=== PATIENT | female | born 1960 | race Caucasian/White ===

== ENCOUNTER → 2023-06-28 13:51 | Outpatient (REF) | payer MEDICARE, BC, SELFPAY ==
--- NOTE | 2023-06-09 09:51 | WATCHMAN ---
Documented by User: ERENDIRA Kaur 06/30/23 08:51
Watchman
Wathcman Procedure
Referred by:: Pawel Calle/Elvis Vargas
Date of Referral:: 06/01/23
[id number] Score
Age in Years (65=0, 65-74=1, >/=75=2): 65-74
Sex (Female=+1): Female
Congestive Heart Failure History (Yes=+1): No
Hypertension History (Yes=+1): Yes
Stroke/TIA/Thromboembolism History (Yes=+2): No
Vascular Disease History (Yes=+1): Yes
Diabetes Mellitus (Yes=+1): Yes
Score: 5
Anticoagulation Recommendations: Recommend anticoagulation (as validated in nonvalvular fib)
HASBLED Score
Hypertenstion (uncontrolled >160mmHG systolic): Yes
Renal disease (dialysis, transplant, Cr >2.26mg/dL or >200umol/L): No
Liver disease (cirrhosis or bilirubin >2x normal w/ AST/ALT/AP >3x normal: No
Stroke history: No
Prior major bleeding or predisposition to bleeding: Yes
Labile INR(unsable/high INRs,time in therapeutic range <60%): No
Age >65: No
Medication usage predisposing to bleeding(ASA, NSAIDS): No
Alcohol use (>/= 8 drinks/week): No
Score: 2
Risk: Anticoagulation can be considered, however patient does have moderate risk for major bleeding (2/100 patient-years)
Electrocardiogram
Interpretation: normal
Heart Rate: 63
Rate: normal
Rhythm: sinus
Physician Visits
Virtual Classroom Manager:: Alva
Date of Visit:: 06/01/23
Primary Service Delivery Management Consultant:: Elvis Vargas
Date of Visit:: 11/21/23
PCP:: Phu
Plan
Plan:: 06/01/2023: Consult received from Dr. Calle for watchman consult.
06/09/2023: BMP results reviewed. BUN/CREAT: 19/0.78. GFR 84. Assisted with scheduling CT Watchman for 06/28/2023 at 1400. Instructions reviewed for no eating or drinking for 3 hours prior and to bring a complete list of medications to visit. Allowed
for and answered questions.

Documented by User: ERENDIRA Bush 07/20/23 07:25
Watchman
[id number] Score
Score: 5
Anticoagulation Recommendations: Recommend anticoagulation (as validated in nonvalvular fib)
HASBLED Score
Score: 2
Risk: Anticoagulation can be considered, however patient does have moderate risk for major bleeding (2/100 patient-years)
Plan
Plan:: 06/01/2023: Consult received from Dr. Calle for watchman consult.
06/09/2023: BMP results reviewed. BUN/CREAT: 19/0.78. GFR 84. Assisted with scheduling CT Watchman for 06/28/2023 at 1400. Instructions reviewed for no eating or drinking for 3 hours prior and to bring a complete list of medications to visit. Allowed
for and answered questions.
07/20/2023: Reviewed patient with the heart team in the SDM meeting. The team is agreeable to proceed with Watchman. T/c 27mm device will confirm with intraop imaging.
--- NOTE | 2023-07-12 08:29 | OID.L.PAT ---
Pulmonary Nodule Pat Letter
- -
07/12/23
JUDY JACKSON
[address]
[place], [place] [address]
Dear JUDY,
A pulmonary nodule was seen on an imaging study done by Radiology. This was reviewed by the Pulmonary Nodule Advisory Board and the following recommendation was made:
Recommendation: Follow up Chest CT in 6 months
If you have any questions, please do not hesitate to contact your primary care physician. If you are in need of a Physician, you can go to [email or web address] and click on 'Find a Provider'. Type 'Family Medicine' in the search.
Oncology Nurse Navigator
[phone]
--- NOTE | 2023-07-12 08:29 | OID.L.REC ---
Pulmonary Nodule Follow Up
- Recommendation
07/12/23
Pulmonary Nodule Review Recommendations
Your patient, JUDY JACKSON, had a pulmonary nodule seen on a CT Chest done on 06/28/23 in the [facility] Radiology Department.
This was reviewed by the [facility] Pulmonary Nodule Advisory Board and the following recommendation was made:
Recommendation: Follow up Chest CT in 6 months
If you have any questions please do not hesitate to contact us.
Sincerely,
Oncology Nurse Navigator
[facility]
[phone]
== END ==
LOC: RAD 13:51
PROVIDERS: ATTENDING PHYSICIAN Internal Medicine Cardiovascular Disease; FAMILY PHYSICIAN Family Medicine
DX: I48.0 Paroxysmal atrial fibrillation (principal)
CPT/HCPCS: 75572; Q9967

== ENCOUNTER 2023-09-21 06:01 | Inpatient (IN) | payer MEDICARE, BC, SELFPAY ==
[2023-09-09 10:46] VITALS: BMI 28.0
[2023-09-09 11:59] LABS: INR 1.93; PT 22.3 Sec (11.4-14.6)
[2023-09-09 12:08] LABS: % Basophils 1.2 % (0-2); % Eosinophils 1.8 % (0-6); % Immature Granulocytes 0.3 % (0-0.5); % Lymphocytes 21.6 % (20.5-51.1); % Monocytes 6.5 % (1.7-9.3); % Neutrophils 68.6 % (42.2-75.2); Absolute Basophils 0.1 10^3/uL (0-0.2); Absolute Eosinophils 0.2 10^3/uL (0-0.7); Absolute Lymphocytes 1.9 10^3/uL (1.2-3.4); Absolute Monocytes 0.6 10^3/uL (0.1-0.6); Absolute Neutrophils 6.1 10^3/uL (1.4-6.5); Hematocrit 32.7 % (37.0-47.0); Hemoglobin 10.5 g/dL (12.0-16.0); Mean Corp Hgb Conc. 32.1 g/dL (33.0-37.0); Mean Corpuscular Hgb 26.3 pg (27.0-31.0); Mean Corpuscular Volume 81.8 fL (81.0-99.0); Nucleated Red Blood Cells % 0 %; Platelet Count 247 10^3/uL (130-400); Red Cell Dist. Width 15.5 % (11.5-14.5); White Blood Cell Count 8.9 10^3/uL (4.8-10.8)
[2023-09-09 12:22] LABS: ALT (SGPT) 17 U/L (0-35); AST (SGOT) 25 U/L (14-36); Albumin 4.6 g/dl (3.5-5.0); Alkaline Phosphatase 57 U/L (38-126); Blood Urea Nitrogen 18 mg/dl (7-17); Calcium 9.2 mg/dl (8.4-10.2); Carbon Dioxide 24 mmol/L (22-30); Chloride 100 mmol/L (98-107); Estimated Creatinine Clearance 76 ml/min; Glucose 129 mg/dl (70-99); Potassium 4.3 mmol/L (3.5-5.1); Sodium 138 mmol/L (135-145); Total Bilirubin 0.4 mg/dl (0.2-1.3); eGFR > 60.00
[2023-09-21] VITALS (17 sets, daily range): BP systolic 101–141; BP diastolic 43–61; BMI 28.0
[2023-09-21 06:56] LABS: Glucose - Point of Care 135 mg/dl (70-99)
[2023-09-21 08:28] LABS: ACT-LR - POC 216 Seconds (116-155)
--- NOTE | 2023-09-21 09:20 | WATCHMAN.MD ---
Addendum entered and electronically signed by Pawel Calle MD 09/22/23 09:43:
She is reluctant to reinitiate aspirin as she has had bleeding complications in the past with aspirin.
-Our revised plan is for maintaining direct oral anticoagulation for 6 months if she tolerates without recurrent bleeding. Thereafter plan to stop direct oral anticoagulant and rediscussed with her starting aspirin and low-dose at 81 mg daily which
I think she would tolerate without recurrent major bleeding.
-We will check 3-month transesophageal echocardiogram to assess for any device related thrombus and to assess for any leaks.
Original Note:
Watchman Implant
-
WATCHMAN LEFT ATRIAL APPENDAGE CLOSURE DEVICE REPORT
Date: September 21, 2023
Referring Web Marketing Analyst: Dr. Pawel Bay
Primary Care Provider: Dr Elvis Vargas
History:
Referred from Dr. Vargas for consideration of left atrial appendage exclusion owing to need for anticoagulation to reduce atrial fibrillation related thromboembolic risk but clinical course has also been complicated by recurrent GI bleeding.
Watchman Team:
MENDY: Dr Brenda Herrera M.D.
Transseptal block making machine operator: Dr Yazan López M.D.
Implanter: Dr Pawel Calle M.D.
Procedure: Watchman left atrial appendage closure.
The patient was placed under general anesthesia by anesthesia.
A MENDY probe was placed.
A 10 Fr sheath was placed in the right femoral vein for ICE.
A 16 Fr sheath was placed via the right femoral vein to allow access for the watchman sheath
Heparin was administered to goal ACT 350-400 seconds. Fluid bolus was given.
Intracardiac ultrasound catheter was placed in the right atrium identifying the intraatrial septum for transseptal puncture.
Transseptal puncture was performed By Dr López. This entailed advancing a sheath with dilator into the superior vena cava and withdrawing both (monitoring intracardiac ultrasound, fluoroscopy and tip pressure) with the tip oriented toward the
atrial septum. The fossa ovalis was engaged (indicated by sudden displacement of the sheath tip as well as tenting of the fossa seen on intracardiac ultrasound). AcQCross transseptal system was used. Left atrial catheter position was confirmed by
echocardiographic imaging, pressure monitoring and well as fluoroscopy. The sheath was advanced over the dilator and positioned in the left atrium.
Dr Pawel Calle positioned and deployed the Watchman device.
The 14 Slovenian watchman access system sheath double curve was substituted for the transeptal sheath. A 5 Slovenian curved pigtail was then substituted for the guidewire through the watchman sheath to the ostium of the left atrial appendage. The 5
Slovenian pigtail was advanced into the left atrial appendage and angiography was performed. This allowed additional measurements assessing left atrial appendage ostium size and BERTHA morphology.
The pigtail catheter was removed from the access sheath. A 24 mm Watchman device was flushed and then placed into the watchman access sheath and advanced through the sheath. The Watchman was clamped into the sheath. The device was deployed into
the left atrial appendage.
The PASS criteria were met. The stability tug test was performed and passed. Angiography and transesophageal echocardiogram revealed no leaks nor jets. The position was confirmed on angiography and transesophageal echo and there were no
significant shoulders. Compression ranges from 20 % to 24 %.
After meeting the PASS release criteria the device was released into the left atrial appendage.
The watchman access sheath was then removed through the transseptal into the IVC.
Impression:
Transeptal puncture by Dr López.
SUCCESSFUL DEPLOYMENT OF 24 mm WATCHMAN LEFT ATRIAL APPENDAGE CLOSURE DEVICE by Dr Pawel Calle.
Recommended anticoagulation strategy for this specific patient is:
In her particular case we discussed maintaining full dose oral anticoagulation (DOAC) with adding aspirin until the follow-up MENDY (3 mo post implant) and if that looks okay stopping aspirin but maintaining full dose anticoagulation to complete 6
months if she has no major bleeding complications. If she were to have recurrent bleeding we could change to lower-dose DOAC (rivaroxaban 15 mg)to complete 6 mo.
Transesophageal echocardiogram at 3 months post procedure will be used to assess for any device related thrombus, assess for any leaks, and aid in the decision making regarding altering anticoagulation/antiplatelet recommendations.
At post procedure MENDY leaks > 5mm are significant and require chronic full anticoagulation or consideration for leak closure. [place]-device leaks between 3 and 5 mm may also carry an increased risk. These patients will need individualized risk
assessment and discussion with Watchman team. Leaks < 3 mm are generally considered non-significant.
Continue cardiovascular care with Dr. Vargas after her follow-up MENDY.
cc:
Dr. Pawel Bay
Dr Elvis Vargas
[2023-09-21] MEDS: ANESTHETIC LOZENGE 1 LOZENGE PO (10:32)
[2023-09-21] MEDS: XARELTO 20 MG PO (16:06)
--- NOTE | 2023-09-21 16:59 | CM ---
spoke to pt in room, she is prev indep, lives with her husb in a split level home with no steps to enter. she has a CPAP she uses. she denies any dc planning needs. plan is for dc to home when medically stable.
--- NOTE | 2023-09-21 18:04 | PTCARENOTE ---
Pt received post watchman and admitted to room 2241. Pt awake, alert and oriented. Right groin site dressing dry and intact. Pt OOB to the bathroom and chair at 1330. Pt denies any pain or discomfort.
[2023-09-21] MEDS: COREG 12.5 MG PO (20:08)
[2023-09-21] MEDS: PEPCID 20 MG PO (21:59)
[2023-09-21] MEDS: NORVASC 10 MG PO (21:59)
[2023-09-21] MEDS: LIPITOR 20 MG PO (21:59)
[2023-09-21] MEDS: COLACE 100 MG PO (21:59)
--- NOTE | 2023-09-21 22:21 | PTCARENOTE ---
R groin dsg w/ small amt drainage on dsg. Unchanged from dayshift. Offers no c/o at this time. Ambulating around room w/ steady gait. Assessment noted as documented. VSS. Tele- SR/SB. HR 50-60s. Currently in bed; call wiley w/in reach.
[2023-09-22 02:27] VITALS: BP 121/57
[2023-09-22 02:54] LABS: Hematocrit 30.3 % (37.0-47.0); Hemoglobin 9.9 g/dL (12.0-16.0); Mean Corp Hgb Conc. 32.7 g/dL (33.0-37.0); Mean Corpuscular Hgb 26.5 pg (27.0-31.0); Mean Platelet Volume 10.6 fL (7.4-10.4); Platelet Count 237 10^3/uL (130-400); Red Blood Cell Count 3.74 10^6/uL (4.20-5.40); Red Cell Dist. Width 15.7 % (11.5-14.5); White Blood Cell Count 9.4 10^3/uL (4.8-10.8)
[2023-09-22 03:15] LABS: Blood Urea Nitrogen 19 mg/dl (7-17); Calcium 8.7 mg/dl (8.4-10.2); Carbon Dioxide 26 mmol/L (22-30); Chloride 106 mmol/L (98-107); Estimated Creatinine Clearance 76 ml/min; Glucose 98 mg/dl (70-99); Magnesium 2.2 mg/dl (1.6-2.3); Sodium 141 mmol/L (135-145); eGFR > 60.00
[2023-09-22 06:51] VITALS: BP 112/60
[2023-09-22] MEDS: SINGULAIR 10 MG PO (08:18)
[2023-09-22] MEDS: COREG 12.5 MG PO (08:18)
[2023-09-22] MEDS: PROTONIX 40 MG PO (08:18)
--- NOTE | 2023-09-22 08:44 | PTCARENOTE ---
Rec'd pt this shift awake and alert ambulating in room and in hallway. Pt SB on monitor, RA. Lungs clear. AM meds given. Pt denies pain, denies sob. Rt groin dsg intact, no bleeding, no hematoma. See worklist for VS/I and O and assessments.
--- NOTE | 2023-09-22 09:25 | W.PN.CARDCBS ---
Addendum entered and electronically signed by Pawel Calle MD 09/22/23 09:43:
Patient seen, interviewed and examined by me.
Well-appearing, no acute distress
Regular rate and rhythm with normal S1 and S2, no S3 no S4. There is a grade 1/6 apical holosystolic murmur and no rubs. PMI is normally placed.
Lungs are clear to auscultation bilaterally without wheezes rales or rhonchi.
Abdomen soft nontender nondistended with normoactive bowel sounds
Extremities show trace pretibial edema bilaterally no clubbing or cyanosis.
Neurologic exam is grossly nonfocal.
Agree with advanced practice professionals assessment and plan as noted below.
Doing well, stable after implantation of Watchman left atrial appendage occlusion device.
She is reluctant to reinitiate aspirin as she has had bleeding complications in the past with aspirin.
-Our revised plan is for maintaining direct oral anticoagulation for 6 months if she tolerates without recurrent bleeding. Thereafter plan to stop direct oral anticoagulant and rediscussed with her starting aspirin and low-dose at 81 mg daily which
I think she would tolerate without recurrent major bleeding.
-We will check 3-month transesophageal echocardiogram to assess for any device related thrombus and to assess for any leaks.
Original Note:
Today's Communication / Plan
-
stable for d/c home
Impression / Plan
-
Referring Medical Officer Psychiatry: Dr. Pawel Bay
Primary Care Provider: Dr Elvis Vargas
Impression:
Recurrent GI bleed/ulcers
PAF
HTN
HLD
CAD/CABG x 3 2016
ELDON post L CEA 2017, R CEA 2018
LAYO/CPAP
GERD/HH
Psoriatic arthritis
Chronic anemia
Ischemic Cardiomyopathy
Plan:
post 24mm BERTHA Watchman device implant 09/21/23
groin stable
tele SB
continue OAC Xarelto 20mg
In her particular case we discussed maintaining full dose oral anticoagulation (DOAC) with adding aspirin until the follow-up MENDY (3 mo post implant) and if that looks okay stopping aspirin but maintaining full dose anticoagulation to complete 6
months if she has no major bleeding complications. If she were to have recurrent bleeding we could change to lower-dose DOAC (rivaroxaban 15 mg)to complete 6 mo.
f/u MENDY 12/06
Activity restrictions reviewed
stable for d/c home
Progress Note - Medical Officer Psychiatry
Subjective
Date of Service: September 22, 2023
no cp, sob
Objective
Labs:
09/22/23 02:37
09/22/23 02:37
Labs
Hgb 9.9 g/dL (12.0-16.0) L 09/22/23 02:37
Hct 30.3 % (37.0-47.0) L 09/22/23 02:37
Plt Count 237 10^3/uL (130-400) 09/22/23 02:37
PT 22.3 Sec (11.4-14.6) H 09/09/23 11:15
INR 1.93 09/09/23 11:15
Sodium 141 mmol/L (135-145) 09/22/23 02:37
Potassium 4.0 mmol/L (3.5-5.1) 09/22/23 02:37
BUN 19 mg/dl (7-17) H 09/22/23 02:37
Creatinine 0.7 mg/dL (0.6-1.0) 09/22/23 02:37
Glucose 98 mg/dl (70-99) 09/22/23 02:37
Vital Signs and I&O:
Vital Signs
Temp Pulse Resp BP Pulse Ox
98.6 F 70 20 112/60 98
09/22/23 06:49 09/22/23 08:18 09/22/23 06:49 09/22/23 08:18 09/22/23 08:42
Vital Signs
Temp Pulse Resp BP Pulse Ox
98.6 F 70 20 112/60 98
09/22/23 06:49 09/22/23 08:18 09/22/23 06:49 09/22/23 08:18 09/22/23 08:42
Intake & Output
09/20/23 09/21/23 09/22/23 09/23/23
06:59 06:59 06:59 06:59
Intake Total 1140 / 1140
Output Total 825 / 825
Balance 315 / 315
Physical Exam
Physical Exam
NAD< AOX3
S1, S2, RRR
CTAB, non labored
SNTND bsx4
R fem site c/d/i no HT, soft
[2023-09-22 11:12] VITALS: BP 119/55
[2023-09-22 11:13] VITALS: BP 119/55
--- NOTE | 2023-09-22 11:19 | PTCARENOTE ---
INT d/c'd. monitor d/c'd. Discharge instructions given to patient.
--- NOTE | 2023-09-22 12:29 | W.DS.TRANS ---
DC Summary - Corn Shucker
-
Discharge Instructions:
Discharge Diagnosis/Procedures AFib, s/p Watchman device implant
Diet Low Cholesterol
Driving Restrictions No driving for 24 hours
Others Tests Follow up MENDY has been scheduled for you at
[facility] on 12/07/2023. You will
receive a call from Dr. Vargas's office with date
for pre-admission testing and instructions.
Instructions:
Stand-Alone Forms: DC Instructions- Cath/EP Lab
Changes to Home Medications: No
Discharge Medications:
DC Medications w/original date entered in [facility]
amlodipine 5 mg tablet 10 mg PO HS Blood Pressure 06/08/21
atorvastatin 10 mg tablet 20 mg PO HS High Cholesterol 11/04/22
carvedilol 12.5 mg tablet 12.5 mg PO BID Blood Pressure 11/04/22
montelukast 10 mg tablet 10 mg PO DAILY Allergies 11/04/22
multivitamin with folic acid 400 mcg tablet (Tab-A-Scar) 1 tab PO DAILY Supplement 01/26/23
rivaroxaban 20 mg tablet (Xarelto) 20 mg PO HS Blood Clot Prevention/Tx 01/26/23
tirzepatide 12.5 mg/0.5 mL subcutaneous pen injector (Mounjaro) 10 mg SC FR diabetes 01/26/23
pantoprazole 40 mg tablet,delayed release 40 mg PO DAILY Gastrointestinal issue #30 tabs 01/28/23
ascorbic acid (vitamin C) 1,000 mg tablet,extended release (Vitamin C ER) 1,000 mg PO DAILY Supplement 09/03/23
cholecalciferol (vitamin D3) 50 mcg (2,000 unit) capsule (Vitamin D3) 50 mcg PO DAILY Supplement 09/03/23
docusate sodium 100 mg capsule (Colace) 100 mg PO HS Constipation 09/03/23
famotidine 20 mg tablet 20 mg PO HS Gastrointestinal Issue 09/03/23
iron polysaccharide complex-iron heme polypeptide 28 mg tablet (Feosol Bifera) 1 tab PO DAILY Supplement 09/03/23
mecobalamin (vitamin B12) 2,500 mcg chewable tablet 2,500 mcg PO DAILY Supplement 09/03/23
magnesium citrate 100 mg tablet 200 mg PO DAILYPRN PRN constipation 09/09/23
Home Medication Changes
Pending Results: No
== END 2023-09-22 11:26 | disposition home or self-care (01) | DRG 274 ==
LOC: IVU 06:01
PROVIDERS: Internal Medicine Cardiovascular Disease; Nurse Practitioner; ADMITTING PHYSICIAN Internal Medicine Cardiovascular Disease; FAMILY PHYSICIAN Family Medicine
PROC: 02L73DK Occlusion of Left Atrial Appendage with Intraluminal Device, Percutaneous Approach (ICD-10-PCS; 2023-09-21)
PROC: B24BZZ4 Ultrasonography of Heart with Aorta, Transesophageal (ICD-10-PCS; 2023-09-21)
DX: I48.0 Paroxysmal atrial fibrillation (principal); Z00.6 Encounter for examination for normal comparison and control in clinical research program; D64.9 Anemia, unspecified; I10 Essential (primary) hypertension; E78.5 Hyperlipidemia, unspecified; I25.10 Atherosclerotic heart disease of native coronary artery without angina pectoris; I65.23 Occlusion and stenosis of bilateral carotid arteries; I25.5 Ischemic cardiomyopathy; I08.1 Rheumatic disorders of both mitral and tricuspid valves; J45.909 Unspecified asthma, uncomplicated; G47.33 Obstructive sleep apnea (adult) (pediatric); E11.9 Type 2 diabetes mellitus without complications; K21.9 Gastro-esophageal reflux disease without esophagitis; K44.9 Diaphragmatic hernia without obstruction or gangrene; K76.0 Fatty (change of) liver, not elsewhere classified; K59.09 Other constipation; L40.50 Arthropathic psoriasis, unspecified; Z79.01 Long term (current) use of anticoagulants; Z79.899 Other long term (current) drug therapy; Z87.11 Personal history of peptic ulcer disease; Z87.891 Personal history of nicotine dependence; Z88.8 Allergy status to other drugs, medicaments and biological substances; Z95.1 Presence of aortocoronary bypass graft
CPT/HCPCS: 33340; 36415; 80048; 80053; 82962; 83735; 85025; 85027; 85347; 85610; 86850; 86900; 86901; 87070; 93005; 93355; C1759; C1760; C1769; C1892; C1894; Q9967

== ENCOUNTER → 2023-11-23 10:48 | Outpatient (REF) | payer MEDICARE, BC, SELFPAY | LOC: SDSPAT 10:48 | PROVIDERS: ATTENDING PHYSICIAN Internal Medicine Cardiovascular Disease; FAMILY PHYSICIAN Family Medicine; OTHER PHYSICIAN Nuclear Medicine Nuclear Cardiology | DX: Z01.818 Encounter for other preprocedural examination (principal); I48.0 Paroxysmal atrial fibrillation | CPT/HCPCS: 93005 ==

== ENCOUNTER 2023-11-26 22:10 | Emergency (ER) | payer MEDICARE, BC, SELFPAY ==
[2023-11-26 22:13] VITALS: BP 157/71
[2023-11-26 22:21] LABS: % Basophils 0.7 % (0-2); % Eosinophils 2.1 % (0-6); % Immature Granulocytes 0.4 % (0-0.5); % Lymphocytes 26.9 % (20.5-51.1); % Monocytes 7.1 % (1.7-9.3); % Neutrophils 62.8 % (42.2-75.2); Absolute Basophils 0.1 10^3/uL (0-0.2); Absolute Eosinophils 0.2 10^3/uL (0-0.7); Absolute Lymphocytes 2.9 10^3/uL (1.2-3.4); Absolute Monocytes 0.8 10^3/uL (0.1-0.6); Absolute Neutrophils 6.8 10^3/uL (1.4-6.5); Hematocrit 32.6 % (37.0-47.0); Hemoglobin 10.9 g/dL (12.0-16.0); Mean Corp Hgb Conc. 33.4 g/dL (33.0-37.0); Mean Corpuscular Hgb 26.3 pg (27.0-31.0); Mean Corpuscular Volume 78.6 fL (81.0-99.0); Mean Platelet Volume 10.5 fL (7.4-10.4); Nucleated Red Blood Cells % 0 %; Platelet Count 294 10^3/uL (130-400); Red Blood Cell Count 4.15 10^6/uL (4.20-5.40); Red Cell Dist. Width 15.9 % (11.5-14.5); White Blood Cell Count 10.8 10^3/uL (4.8-10.8)
[2023-11-26 22:42] LABS: ALT (SGPT) 14 U/L (0-35); AST (SGOT) 23 U/L (14-36); Albumin 4.6 g/dl (3.5-5.0); Alkaline Phosphatase 61 U/L (38-126); Blood Urea Nitrogen 38 mg/dl (7-17); Calcium 9.3 mg/dl (8.4-10.2); Carbon Dioxide 26 mmol/L (22-30); Chloride 102 mmol/L (98-107); Glucose 169 mg/dl (70-99); Potassium 4.4 mmol/L (3.5-5.1); Sodium 139 mmol/L (135-145); Total Bilirubin 0.5 mg/dl (0.2-1.3); Total Protein 8.1 g/dl (6.3-8.2); eGFR > 60.00
--- NOTE | 2023-11-26 23:32 | ED.GENMED ---
History of Present Illness
General
Chief Complaint: Cardiac Symptoms
Source: patient
Exam Limitations: none
Time Seen by Provider: 11/26/23 23:17
History of Present Illness
History of Present Illness:
This is a 63 year old female that comes in by ambulance with c/o atrial fib. States that she has not had any issues with atrial fib for years. States that she only had it months after her bypass surgery and it went away. States that today she felt
like her heart was going into atrial fib as she would feel it beat irregular and then had a pause. States that she did walk today. States that she put her Apple watch on and her heart rate would go up to 160's. States that when the ambulance got
there they said she was in atrial fib. Then in the ambulance she felt a little lightheaded and they asked how she felt. States that she told them about the lightheaded feeling and they said her heart rate went down into the 30's and she then was in
NSR. Patient states that she had a little nausea and slight headache and lightheadedness. States that her left up she thought may have hurt a little but she may have imagined this. Denies any fever, chills, chest pain, SOB, abd pain, vomiting,
diarrhea, urinary burning.
Past History
Past History
ED Past Medical History: Arrthythmia (Atrial fib, V-Tach), Asthma, CAD, CVA, HTN, Hypercholesterolemia, NIDDM, SC and Other (Bronchitis, Pyelonephritis, psoriatic arthritis, Sleep apnea uses CPAP, GI bleeding, Anemia, )
ED Past Surgical History: Cardiac (CABG, Left and right Carotid endarterectomy, Watchman procedure Nay 2023) and Other
Social History
Tobacco: Former smoker
Alcohol: Occasional
Drug: None
Personal:
Living: with family
Employment: Employed
Family History
Family History: Hypertension
Review of Systems
Review of Systems
All Other Systems: ROS reviewed and negative except as documented in HPI and ROS
Constitutional: Reports no symptoms; Denies fever or chills
EENT: Reports no symptoms
Respiratory: Reports no symptoms; Denies cough or trouble breathing
Cardiac: Denies chest pain
ABD/GI: Reports nausea; Denies abdominal pain, vomiting or diarrhea
: Reports no symptoms; Denies dysuria, frequency or urgency
Musculoskeletal: Reports no symptoms
Skin: Reports no symptoms
Neurological: Reports headache and other (Lightheaded)
Psychiatric: Reports no symptoms
Phy Exam
General Physical Exam
General Presentation: well appearing and no apparent distress
General age: appears stated age
General Skin: warm and dry
General Habitus: normal
General Mental: alert
General Hydration: dry mucous membranes
ENT Exam
ENT Exam: TM's normal, pharynx normal and neck supple
Eye Exam
Eye Exam: EOMI
Cardiovascular Exam
Cardiovascular Exam: regular rate/rhythm, no edema, no murmur and normal peripheral pulses
Pulmonary Exam
Pulmonary Exam: lungs clear, no respiratory distress, no rales, chest non tender, no crackles, no rhonchi, no wheezing and no cough
Gastrointestinal Exam
Gastrointestinal Exam: normal bowel sounds, non tender, soft, no organomegaly, no pulsatile mass and non distended
Musculoskeletal Exam
Musculoskeletal Exam: full ROM and no edema
Skin Exam
Skin Exam: normal color, warm/dry, no rash and no petechia
Psychiatric Exam
Psychiatric Exam: normal mood/affect
Course
Orders/Labs/Results
Orders:
Orders
11/26/23 22:13
Electrocardiogram (*1) Urgent
Reason for Study: Chest Pain
EKG- Treatment ONCE
11/26/23 22:16
Complete Blood Count/With Diff Urgent
Comprehensive Metabolic Panel Urgent
11/26/23 23:32
0.9% Sodium Chloride 1000 ml [Nss] 1,000 ml IV BOLUS
11/26/23 23:37
Troponin I Urgent
Abnormal Lab Results
11/26/23
22:16
RBC 4.15 L 10^6/uL
(4.20-5.40)
Hgb 10.9 L g/dL
(12.0-16.0)
Hct 32.6 L %
(37.0-47.0)
MCV 78.6 L fL
(81.0-99.0)
MCH 26.3 L pg
(27.0-31.0)
RDW 15.9 H %
(11.5-14.5)
MPV 10.5 H fL
(7.4-10.4)
Absolute Neuts (auto) 6.8 H 10^3/uL
(1.4-6.5)
Absolute Monos (auto) 0.8 H 10^3/uL
(0.1-0.6)
BUN 38 H mg/dl
(7-17)
Glucose 169 H mg/dl
(70-99)
11/26/23 22:16
11/26/23 22:16
H/H low but improved from prior labs, Anemia,Dehydration. Glucose nonfasting. Troponin <0.012
Vital Signs
Initial and Last Documented VS:
Initial Vital Signs
Temp Pulse Resp BP Pulse Ox
97.9 F 77 18 157/71 98
11/26/23 22:13 11/26/23 22:13 11/26/23 22:13 11/26/23 22:13 11/26/23 22:13
Last Documented Vital Signs
Temp Pulse Resp BP Pulse Ox
97.9 F 66 18 132/50 98
11/26/23 22:13 11/27/23 00:26 11/27/23 00:26 11/27/23 00:26 11/27/23 00:26
MDM/Problems Addressed
Differential Diagnosis Includes:
Atial fib, Dehydration.
MDM/Problems Addressed:
This is a 63 year old female that comes in with c/o atrial fib. States that she was going up into the 160's and could feel that she was in atrial fib. States that she has not been in atrial fib for years.
Patient broke in the ambulance as her heart rate went down into the 30's according to the patient and then she was in a NSR. Will check labs and given IV Fluids.
Back into see patient. Patient has been given a Liter or fluid and she has remained in a NSR. Will discharge patient home and have her follow up with the Telecommunication Tower Technician on Wednesday. Return with any concerns.
Chronic conditions affecting care:
HIstory of Atrial fib, CABG, Watchman procedure
Acute Exacerbation and/or Progression of Chronic Illness:
Atrial fib
*Pulse Oximetry
Patient hypoxic: no
*EKG
Interpreted by ED Provider?: Yes
Heart Rate: 73
Rate: normal
Rhythm: sinus arrhythmia
[place]: normal axis
Interval: normal interval
QRS Pattern: normal QRS
Ischemia: T-wave inversion (I, aVL, V2, V4, V5, Checked by Dr. Salamanca)
*Slope Hoist Operator Interpretation
Rate: normal
Heart Rate: 74
Rhythm: sinus
*Critical Care Note
Total Time (30-74mins, 75-104mins- exclusive of procedures): Not Applicable
ED Attending Note
-
Portions of this chart may have been created with voice recognition software.� Occasional wrong word or��sound alike� substitutions may have occurred due to the inherent limitations of voice recognition software.
Discharge Plan
Departure
Patient Disposition: Home (Routine Discharge)
Date of Disposition: 11/27/23
Time of Disposition: 00:35
Patient with high blood pressure during this ER visit?: Yes
Condition: Good
Covid-19: Not Applicable
Discharge Problem:
Acute dehydration, Atrial fibrillation
Instructions: Atrial Fibrillation (DC), Dehydration, Adult ED, BLOOD PRESSURE
Prescriptions:
No Action
amlodipine 5 MG tablet
10 mg PO HS
carvedilol 12.5 mg tablet
12.5 mg PO BID
atorvastatin 10 mg tablet
20 mg PO HS
montelukast 10 mg tablet
10 mg PO DAILY
Mounjaro 12.5 mg/0.5 mL Pen Injector
7.5 mg SC FR
Xarelto 20 MG tablet
20 mg PO HS
multivitamin with folic acid [Tab-A-Scar] 1 TABLET tablet
1 tab PO DAILY
pantoprazole 40 mg Tablet,Delayed Release (Dr/Ec)
40 mg PO DAILY Qty: 30 0RF
Vitamin C 1,000 mg Tablet Extended Release
1,000 mg PO DAILY
famotidine 20 mg Tablet
20 mg PO HS
docusate sodium [Colace] 100 mg Capsule
100 mg PO HS
cholecalciferol (vitamin D3) [Vitamin D3] 50 mcg (2,000 unit) Capsule
50 mcg PO DAILY
Feosol Bifera 28 mg Tablet
1 tab PO DAILY
mecobalamin (vitamin B12) 2,500 mcg Tablet,Chewable
2,500 mcg PO DAILY
magnesium citrate 100 mg Tablet
200 mg PO DAILYPRN PRN (Reason: constipation)
cetirizine [Zyrtec] 10 mg Tablet
10 mg PO DAILY PRN (Reason: allergies)
Referrals:
Evlis Vargas DO [Active] - Follow up in 2-3 days
Pawel Bay DO [Family Provider] -
Activity Restrictions/Additional Instructions:
As discussed, your blood work shows you are anemia and that you are very dehydrated. Please increase your water intake to 8-8oz glasses daily. Follow up with the Telecommunication Tower Technician on Wednesday for further evaluation. IF YOU HAVE ANY CHEST PAIN, ANY FURTHER
ATRIAL FIB OR YOU HAVE ANY OTHER CONCERNS PLEASE RETURN TO THE EMERGENCY ROOM.
Interventions
Interventions:
*Risk Screen - Suicide Last Done: 11/26/23 22:13
*General Assessment Last Done: 11/26/23 22:13
*Neglect/Abuse Screening Last Done: 11/26/23 22:13
Discharge Date and Time
Print Language: LUX[place]
[2023-11-26] MEDS: NSS 1000 IV (23:33)
[2023-11-27 00:20] LABS: Troponin I < 0.012 ng/ml
[2023-11-27 00:26] VITALS: BP 132/50
== END 2023-11-27 00:44 | disposition home or self-care (01) ==
LOC: EMR 22:10
PROVIDERS: Clinical Nurse Specialist Family Health; Emergency Medicine; EMERGENCY PHYSICIAN Emergency Medicine; FAMILY PHYSICIAN Family Medicine
DX: E86.0 Dehydration (principal); I48.91 Unspecified atrial fibrillation; I10 Essential (primary) hypertension; J45.909 Unspecified asthma, uncomplicated; I25.10 Atherosclerotic heart disease of native coronary artery without angina pectoris; E78.00 Pure hypercholesterolemia, unspecified; E11.9 Type 2 diabetes mellitus without complications; I25.2 Old myocardial infarction; L40.50 Arthropathic psoriasis, unspecified; G47.30 Sleep apnea, unspecified; D64.9 Anemia, unspecified; Z82.49 Family history of ischemic heart disease and other diseases of the circulatory system; Z86.73 Personal history of transient ischemic attack (TIA), and cerebral infarction without residual deficits; Z87.891 Personal history of nicotine dependence; Z95.1 Presence of aortocoronary bypass graft
CPT/HCPCS: 99283; 80053; 84484; 85025; 93005

== ENCOUNTER → 2023-12-07 07:01 | Day surgery (SDC) | payer MEDICARE, BC, SELFPAY ==
[2023-11-23 10:53] VITALS: BMI 27.0
[2023-12-07 07:22] VITALS: BMI 26.5
== END ==
LOC: CATH 07:01
PROVIDERS: ATTENDING PHYSICIAN Internal Medicine Cardiovascular Disease; FAMILY PHYSICIAN Family Medicine; OTHER PHYSICIAN Nuclear Medicine Nuclear Cardiology
DX: Z45.09 Encounter for adjustment and management of other cardiac device (principal); I08.1 Rheumatic disorders of both mitral and tricuspid valves; I48.0 Paroxysmal atrial fibrillation; I25.10 Atherosclerotic heart disease of native coronary artery without angina pectoris; I25.5 Ischemic cardiomyopathy; I10 Essential (primary) hypertension; E78.5 Hyperlipidemia, unspecified; K21.9 Gastro-esophageal reflux disease without esophagitis; G47.33 Obstructive sleep apnea (adult) (pediatric); E11.51 Type 2 diabetes mellitus with diabetic peripheral angiopathy without gangrene; J45.909 Unspecified asthma, uncomplicated; Z95.1 Presence of aortocoronary bypass graft; Z87.891 Personal history of nicotine dependence; Z79.01 Long term (current) use of anticoagulants; Z79.85 Long-term (current) use of injectable non-insulin antidiabetic drugs
CPT/HCPCS: 93312; 93320; 93325

== ENCOUNTER → 2024-02-21 15:24 | Outpatient (REF) | payer MEDICARE, BC, SELFPAY | LOC: HWRAD 15:24 | PROVIDERS: ATTENDING PHYSICIAN Internal Medicine Critical Care Medicine; FAMILY PHYSICIAN Family Medicine | DX: R91.8 Other nonspecific abnormal finding of lung field (principal) | CPT/HCPCS: 71250 ==

== ENCOUNTER → 2024-03-10 13:05 | Outpatient (REF) | payer MEDICARE, BC, SELFPAY | LOC: RAD 13:05 | PROVIDERS: ATTENDING PHYSICIAN Surgery Vascular Surgery; FAMILY PHYSICIAN Family Medicine | DX: I73.9 Peripheral vascular disease, unspecified (principal) | CPT/HCPCS: 93922; 93925 ==

== ENCOUNTER → 2024-03-14 10:35 | Outpatient (REF) | payer MEDICARE, BC, SELFPAY | LOC: HWRAD 10:35 | PROVIDERS: ATTENDING PHYSICIAN Internal Medicine Rheumatology; FAMILY PHYSICIAN Family Medicine | DX: M81.0 Age-related osteoporosis without current pathological fracture (principal) | CPT/HCPCS: 77080 ==

== ENCOUNTER 2024-03-28 07:14 | Day surgery (SDC) | payer MEDICARE, BC, SELFPAY ==
[2024-03-28 07:57] LABS: Glucose - Point of Care 132 mg/dl (70-99)
== END 2024-03-28 09:10 | disposition home or self-care (01) ==
LOC: CATH 07:14
PROVIDERS: ATTENDING PHYSICIAN Nuclear Medicine Nuclear Cardiology; FAMILY PHYSICIAN Family Medicine
DX: I08.1 Rheumatic disorders of both mitral and tricuspid valves (principal); I48.0 Paroxysmal atrial fibrillation; I25.10 Atherosclerotic heart disease of native coronary artery without angina pectoris; I10 Essential (primary) hypertension; E78.5 Hyperlipidemia, unspecified; I25.2 Old myocardial infarction; Z95.1 Presence of aortocoronary bypass graft; Z95.818 Presence of other cardiac implants and grafts; E11.9 Type 2 diabetes mellitus without complications; K21.9 Gastro-esophageal reflux disease without esophagitis; G47.33 Obstructive sleep apnea (adult) (pediatric); Z87.891 Personal history of nicotine dependence; Z79.85 Long-term (current) use of injectable non-insulin antidiabetic drugs; Z79.01 Long term (current) use of anticoagulants
CPT/HCPCS: 93312; 93320; 93325; 82962

== ENCOUNTER → 2024-04-10 06:28 | Day surgery (SDC) | payer MEDICARE, BC, SELFPAY ==
[2024-04-10 09:09] LABS: Glucose - Point of Care 126 mg/dl (70-99)
== END ==
LOC: GI 06:28
PROVIDERS: ATTENDING PHYSICIAN Internal Medicine Gastroenterology
DX: D12.2 Benign neoplasm of ascending colon (principal); D12.7 Benign neoplasm of rectosigmoid junction; K63.5 Polyp of colon; D50.9 Iron deficiency anemia, unspecified; Z86.0101 Personal history of adenomatous and serrated colon polyps
CPT/HCPCS: 45385; 45380; 88305; 82962

== ENCOUNTER → 2025-03-06 10:46 | Outpatient (REF) | payer MEDICARE, BC, SELFPAY | LOC: DHVS 10:46 | PROVIDERS: ATTENDING PHYSICIAN Registered Nurse; FAMILY PHYSICIAN Family Medicine | DX: I73.9 Peripheral vascular disease, unspecified (principal) | CPT/HCPCS: 93922; 93925 ==

== ENCOUNTER 2025-03-28 06:15 | Day surgery (SDC) | payer MEDICARE, BC, SELFPAY ==
--- NOTE | 2025-03-26 12:35 | PTCARENOTE ---
Patients 11/27/24 ECG abnormal- reviewed by Dr. Lloyd- no additional interventions required
[2025-03-28] VITALS (23 sets, daily range): BP systolic 89–139; BP diastolic 48–88
[2025-03-28 06:59] LABS: Glucose - Point of Care 134 mg/dl (70-99)
--- NOTE | 2025-03-28 07:01 | W.SUR.PREOP ---
Pre-Operative Surgical Note
-
I have examined this patient prior to the performance of the scheduled procedure.
The patient's condition is unchanged from the time of the current History and
Physical and the patient is able to undergo the scheduled procedure.
Discussed extensively with the patient her symptoms. Left greater than right progressive worsening claudication. She has been continuing to try exercise walking regularly she used to walk 2 miles a day. However she has been unable to maintain due
to severe claudication and has not been improving with continued exercise. Therefore discussed angiography. Left side is worse than right. Discussed procedural technical aspects. Discussed risks of/benefits/alternatives. She understands all
wishes to proceed. Discussed left lower extremity arterial intervention through right femoral puncture. Discussed possibility of needing staged surgical procedure if unable to treat endovascularly and she is having debilitating symptoms still.
Discussed possibility of right femoral angiography through sheath. She understands all wishes to proceed.
[2025-03-28 07:02] LABS: Hematocrit 36.8 % (37.0-47.0); Hemoglobin 11.8 g/dL (12.0-16.0); Mean Corp Hgb Conc. 32.1 g/dL (33.0-37.0); Mean Corpuscular Volume 83.8 fL (81.0-99.0); Platelet Count 296 10^3/uL (130-400); Red Cell Dist. Width 15.1 % (11.5-14.5)
[2025-03-28 07:07] LABS: APTT 30.4 Sec (23.4-35.0); INR 1.06; PT 14.1 Sec (11.4-14.6)
[2025-03-28] MEDS: NSS 500 IV (07:38)
[2025-03-28 08:50] LABS: Blood Urea Nitrogen 22 mg/dl (7-17); Calcium 8.4 mg/dl (8.4-10.2); Carbon Dioxide 27 mmol/L (22-30); Chloride 105 mmol/L (98-107); Estimated Creatinine Clearance 86 ml/min; Glucose 153 mg/dl (70-99); Potassium 4.5 mmol/L (3.5-5.1); Sodium 140 mmol/L (135-145); eGFR > 60.00
--- NOTE | 2025-03-28 10:01 | W.SUR.POST ---
Surgical Immediate Post Op
Note
Pre Op Diagnosis: Peripheral arterial disease
Post Op Diagnosis: Peripheral arterial disease
Procedure Performed: Left lower extremity angiogram with shockwave lithotripsy and stent placement to left SFA
Primary Surgeon: Ede Malloy M.D.
Secondary Surgeons: N/A
Anesthesia: MAC
Estimated Blood Loss: 2 mL
Fluids: See anesthesia flowsheet
Drains/Shunts: N/A
Specimens/Cultures: N/A
Doppler/Duplex/Angio (Y/N): Y
Complications: None
Operative Findings: Following intervention patient had a palpable left DP pulse
[2025-03-28 10:08] LABS: Glucose - Point of Care 122 mg/dl (70-99)
[2025-03-28] MEDS: PLAVIX 300 MG PO (10:29)
--- NOTE | 2025-03-28 12:17 | OR.RPT ---
Operative Report
Operative Report
PROCEDURE DATE: 03/28/2025
Preoperative diagnosis: Debilitating left lower extremity claudication.
Postoperative diagnosis: Same
Procedure:
1. Duplex assisted cannulation of right common femoral artery.
2. Aortogram and pelvic angiogram.
3. Left lower extremity arteriogram.
4. IVL (intravascular lithotripsy) balloon angioplasty of severe left superficial femoral artery plaque stenosis with Shockwave 6 mm balloon catheter.
5. Placement of self-expanding drug-eluting stent left superficial femoral artery with 6 mm x 120 mm [employer] Zilver PTX stent.
6. Right femoral angiogram.
7. Supervision and interpretation.
Surgeon: Gama
Numerical Control Nesting Operator: None
Complications: None
Anesthesia: Local, sedation
Fluoroscopy:
9.4 min
63 mGy
10.78 gy.cm2
Indications for procedure:
Debilitating left lower extremity claudication. Lesser so but bothersome right lower extremity claudication as well. ABIs had decreased bilaterally. SFA stenoses noted on ultrasound bilaterally. Failure of exercise therapy.
Risk/benefits/alternatives of angiography fully discussed. Patient understood all wished to proceed.
Description of procedure:
Patient was identified, brought to the operating room. Placed on the table in the supine position. After the adequate administration of anesthesia, the patient was prepped and draped in the standard surgical fashion. A standard preoperative
timeout was undertaken and everybody was in agreement with the plan.
The right common femoral artery was accessed with a micropuncture kit under direct duplex ultrasound guidance. A 5 Swazi sheath was then advanced over a 0.035 inch wire, and a kat's hook catheter was advanced into the abdominal aorta.
Aortogram and pelvic angiogram was obtained. Findings as follows:
The infrarenal abdominal aorta and bilateral common and external iliac arteries had significant eccentric calcified plaque throughout, but no significant stenoses noted.
Using a floppy angled hydrophilic wire, the left common femoral artery was cannulated and the catheter was advanced. Left lower extremity arteriogram was obtained. Findings as follows:
Common femoral artery: Eccentric calcified plaque, patent with no significant stenosis.
Profunda femoris artery: Patent with no significant stenosis.
Superficial femoral artery: Extensive eccentric calcified plaque with diffuse luminal irregularities throughout its course. In the midsegment there is a heavy popcorn-like plaque that resulted in a significant stenosis. In and around that region
especially slightly distally to there there was luminal irregularities with possibility of moderate stenosis, difficult to definitively ascertain based on two-dimensional angiography.
Popliteal artery: At the junction of the SFA to the popliteal artery there is about a 40 to 50% stenosis causing lesion. Otherwise the popliteal artery was patent behind the knee and below the knee.
Anterior tibial artery: High takeoff actually above the knee that then wrapped around and gave rise to the anterior tibial/dorsalis pedis on the foot. However very poor filling on the foot itself.
Tibial peroneal trunk: Patent/continuous with the below-knee popliteal artery with no significant stenosis.
Peroneal artery: Patent/continuous with the popliteal artery and tibioperoneal trunk with no stenosis. Dominant runoff vessel to the ankle. Gave large collateral that reconstituted the plantar artery on the foot
Posterior tibial artery: Chronically occluded.
At this point I selectively cannulated the superficial femoral artery and then exchanged over a Storq wire for an up and over 6 Swazi sheath. The patient was given an appropriate dose of intravenous heparin. Once this had circulated, I was able
to advance a Storq wire through the stenotic area. Wire was advanced into the popliteal artery. Next I used a Shockwave IVL 6 mm balloon catheter (as I felt that plaque modification was significantly warranted due to the extensive bulky plaque
burden). Repeated low atmospheric inflations (4atm) were performed, activating the meters and then inflating up to 6 jamel in the standard fashion. Completion angiogram demonstrated markedly improved result. The bulky coral reef like plaque had
nicely dissipated/improved. However given plaque modification, I felt that luminal expansion was warranted with the stent. Therefore I used a 6 mm x 120 mm [employer] Zilver PTX drug-eluting stent. This was deployed across the area of stenosis.
Postangioplasty with a 5 mm balloon. Completion angiogram demonstrated excellent result with brisk preserved flow into the runoff. At this point I was satisfied. Sheath was withdrawn to the right external iliac artery. Right femoral angiogram
demonstrated good puncture in the right common femoral artery. We exchanged for a short 6 Swazi sheath and the wire was removed.
Patient was transported recovery room in table condition. She tolerated the procedure well.
The sheath was then withdrawn and the recovery area and manual pressure was applied to the puncture site. Hemostasis was fully achieved. The patient had a palpable left dorsalis pedis pulse upon completion.
[2025-03-28] MEDS: NSS 1000 IV (14:01)
== END 2025-03-28 16:52 | disposition home or self-care (01) ==
LOC: CATH 06:15
PROVIDERS: ATTENDING PHYSICIAN Surgery Vascular Surgery; OTHER PHYSICIAN Nuclear Medicine Nuclear Cardiology; PRIMARYCARE PHYSICIAN Family Medicine
DX: E11.51 Type 2 diabetes mellitus with diabetic peripheral angiopathy without gangrene (principal); I70.213 Atherosclerosis of native arteries of extremities with intermittent claudication, bilateral legs; I25.10 Atherosclerotic heart disease of native coronary artery without angina pectoris; Z79.82 Long term (current) use of aspirin; I48.91 Unspecified atrial fibrillation; I10 Essential (primary) hypertension
CPT/HCPCS: C9765; 75625; 75710; 80048; 82962; 85027; 85610; 85730; 86850; 86900; 86901; C1725; C1769; C1874; C1887; C1894; Q9967

== ENCOUNTER → 2025-04-13 12:57 | Outpatient (REF) | payer MEDICARE, BC, SELFPAY | LOC: HWRCS 12:57 | PROVIDERS: ATTENDING PHYSICIAN Nuclear Medicine Nuclear Cardiology; FAMILY PHYSICIAN Family Medicine | DX: I48.0 Paroxysmal atrial fibrillation (principal); Z95.1 Presence of aortocoronary bypass graft; I25.5 Ischemic cardiomyopathy; I10 Essential (primary) hypertension | CPT/HCPCS: 93306 ==

== ENCOUNTER → 2025-04-27 08:41 | Outpatient (REF) | payer MEDICARE, BC, SELFPAY | LOC: DHVS 08:41 | PROVIDERS: ATTENDING PHYSICIAN Surgery Vascular Surgery | DX: I73.9 Peripheral vascular disease, unspecified (principal) | CPT/HCPCS: 93922; 93925 ==